=== PATIENT | male | born 2000 | race African-American/Black ===

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

== ENCOUNTER 2022-10-20 14:37 | Emergency (ER) | payer SELFPAY | END 2022-10-20 17:03 | disposition home or self-care (01) | LOC: MW.ED 14:37 | DX: M79.641 Pain in right hand (principal); G89.29 Other chronic pain; M54.6 Pain in thoracic spine | CPT/HCPCS: 73130-26-RT; 73130-RT; 99283 ==

== ENCOUNTER 2022-12-21 12:20 | Emergency (ER) | payer SELFPAY ==
[2022-12-21] MEDS ORDERED: Benzocaine 20% Topical Spray UD MUCMEM ONE (12:36)
[2022-12-21] MEDS ORDERED: Lidocaine 2% Viscous Solution 15 ML UD PO ONE (12:36)
== END 2022-12-21 12:45 | disposition home or self-care (01) ==
LOC: MW.ED 12:20
DX: K08.89 Other specified disorders of teeth and supporting structures (principal)
CPT/HCPCS: 99282; A9270; 99283

== ENCOUNTER 2023-02-05 11:47 | Emergency (ER) | payer SELFPAY ==
[2023-02-05] MEDS ORDERED: Ibuprofen 600 MG Tab PO ONE (12:33)
[2023-02-05] MEDS ORDERED: Acetaminophen/oxyCODONE 325-5 MG Tab PO ONE (12:33)
== END 2023-02-05 15:17 | disposition home or self-care (01) ==
LOC: MW.ED 11:47
DX: M25.512 Pain in left shoulder (principal); R07.1 Chest pain on breathing; M25.551 Pain in right hip; M25.572 Pain in left ankle and joints of left foot; V89.2XXA Person injured in unspecified motor-vehicle accident, traffic, initial encounter; Y92.410 Unspecified street and highway as the place of occurrence of the external cause
CPT/HCPCS: 71045; 73030; 73502; 73610; 99283; A9270

== ENCOUNTER 2023-02-22 09:08 | Emergency (ER) | payer SELFPAY ==
[2023-02-22] MEDS ORDERED: Ketorolac 30 MG/ML SDV IVPUSH ONE (09:30)
[2023-02-22 09:32] LABS: BASOPHILS ABSOLUTE AUTO 0.03 K/uL (0.00-0.20); BASOPHILS PERCENT AUTO 0.5 % (0.0-1.0); EOSINOPHILS ABSOLUTE AUTO 0.18 K/uL (0.00-0.45); HEMATOCRIT 42.4 % (42.0-52.0); HEMOGLOBIN 14.4 g/dL (14.0-18.0); IMMATURE GRAN ABSOLUTE AUTO 0.01 K/uL (0.00-0.05); IMMATURE GRAN PERCENT AUTO 0.2 % (0.0-0.4); LYMPHOCYTES ABSOLUTE AUTO 3.18 K/uL (1.00-4.80); LYMPHOCYTES PERCENT AUTO 53.6 % (24.0-44.0); MEAN CORPUSCULAR HEMOGLOBIN 29.7 pg (28.0-32.0); MEAN CORPUSCULAR VOLUME 87.4 fL (83.0-99.0); MEAN PLATELET VOLUME 10.4 fL (9.4-12.4); MONOCYTES ABSOLUTE AUTO 0.55 K/uL (0.00-0.80); MONOCYTES PERCENT AUTO 9.3 % (0.0-8.0); NEUTROPHILS ABSOLUTE AUTO 1.98 K/uL (1.80-7.70); NEUTROPHILS PERCENT AUTO 33.4 % (41.0-71.0); PLATELET COUNT,PLT 149 K/uL (150-400); RED BLOOD CELL COUNT 4.85 M/uL (4.52-5.90); WHITE BLOOD CELL COUNT,WBC 5.93 K/uL (3.9-11.3)
[2023-02-22] MEDS ORDERED: Sodium Chloride 0.9% 1,000 ML IV SCH (09:45)
[2023-02-22 10:08] LABS: A/G RATIO 1.2 (0.9-1.6); ALANINE AMINOTRANSFERASE,ALT 31 IU/L (14-63); ALBUMIN 4.2 g/dL (3.4-5.0); ALKALINE PHOSPHATASE 91 U/L (46-116); ASPARTATE AMNIOTRANSFERASE,AST 25 IU/L (15-37); BILIRUBIN TOTAL 0.6 mg/dL (0.2-1.0); BLOOD UREA NITROGEN,BUN 15 mg/dL (7.0-18.0); CALCIUM 8.9 mg/dL (8.5-10.1); CARBON DIOXIDE,CO2 26.7 mmol/L (21.0-32.0); CHLORIDE,CL 103 mmol/L (98-107); CREATININE 1.1 mg/dL (0.8-1.3); EST CRCL DRUG DOSING (CG) 99.65 mL/min; GLUCOSE RANDOM 112 mg/dL (74-106); POTASSIUM,K 3.8 mmol/L (3.5-5.1); PROTEIN TOTAL,TP 7.6 g/dL (6.4-8.2); SODIUM,NA 140 mmol/L (136-148)
[2023-02-22 10:10] LABS: ESTIMATED GFR 96 mL/min (>60)
== END 2023-02-22 10:58 | disposition home or self-care (01) ==
LOC: MW.ED 09:08
DX: R07.9 Chest pain, unspecified (principal)
CPT/HCPCS: 36415; 71045; 80053; 84484; 85025; 93005; 96361; 96374; 99285; J1885; J7030

== ENCOUNTER 2023-03-29 10:26 | Emergency (ER) | payer SELFPAY | END 2023-03-29 12:58 | disposition home or self-care (01) | LOC: MW.ED 10:26 | DX: R06.09 Other forms of dyspnea (principal) | CPT/HCPCS: 71046; 99282; 99284 ==